=== PATIENT | female | born 1985 | race Caucasian/White ===

== ENCOUNTER 2016-06-01 04:18 | Emergency (ER) | payer MEDICAID ==
[~2016-06-01] VITALS: Ht 170.2 cm; Wt 81.6 kg
[2016-06-01 04:20] VITALS: BP_SYST 135
--- NOTE | 2016-06-01 04:20 | NUR ---
Patient to ER bed 03 to gown for evaluation. Side rails up. Report given to FLOR Blackmon.
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
[2016-06-01 04:38] VITALS: BP_SYST 135
--- NOTE | 2016-06-01 04:38 | NUR ---
ER at bedside examining patient.
--- NOTE | 2016-06-01 04:40 | NUR ---
Patient with [facility] was medical cleared and verbalizes understanding. ER MD discussed with patient the results and treatment provided. Patient in stable condition. Patient educated on pain management and to follow up with PMD. Pain Scale 0/10. Opportunity for questions provided and answered.
== END 2016-06-01 04:38 | disposition home or self-care (01) ==
LOC: SED 04:18
DX: Z02.89 Encounter for other administrative examinations (principal); C79.89 Secondary malignant neoplasm of other specified sites
CPT/HCPCS: 99283